=== PATIENT | female | born 1940 | race Caucasian/White ===

== ENCOUNTER 2017-03-07 00:35 | Inpatient (IN) | payer OTHER, MEDICARE ==
[~2017-03-07] VITALS: Ht 170.2 cm; Wt 74.8 kg
[2017-03-07] VITALS (20 sets, daily range): BP systolic 91–147
[2017-03-07] MEDS ORDERED: ALBUTEROL SULFATE 0.083% 2.5 MG/3 ML VIAL.NEB INH ONE (01:00)
[2017-03-07] MEDS ORDERED: methylPREDNISolone SOD SUCC/PF 62.5 MG/ML VIAL IVP ONE (01:00)
[2017-03-07] MEDS ORDERED: TERBUTALINE SULFATE 1 MG/ML VIAL SUBCUT ONE (01:00)
[2017-03-07] MEDS ORDERED: IPRATROPIUM BROM 0.5 MG/2.5 ML VIAL.NEB (ATROVENT) INH ONE (01:00)
[2017-03-07 01:21] LABS: HEMOGLOBIN 15.3 g/dL (12.0-16.0); MEAN CORPUSCULAR HGB CONC 33 % (32-36); PLATELET COUNT (AUTO) 96 K/uL (130-430)
[2017-03-07 01:26] LABS: ANION GAP 12 (5-15); CALCIUM 9.2 mg/dL (8.4-11.0); CHLORIDE 107 mmol/L (98-107); CREATININE 1.36 mg/dL (0.55-1.30); GLUCOSE 153 mg/dL (70-99); POTASSIUM 4.4 mmol/L (3.5-5.1); SODIUM SERUM 143 mmol/L (136-145); UREA NITROGEN, BLOOD 44 mg/dL (8-21)
[2017-03-07 01:28] LABS: HEMATOCRIT 46.3 % (36-48); MEAN CORPUSCULAR HEMOGLOBIN 29 pg (27-31); MEAN CORPUSCULAR VOLUME 88 fL (79.0-98.0); RED BLOOD CELL COUNT(AUTO) 5.24 MIL/uL (4.2-6.2); RED CELL DISTRIBUTION WIDTH 16.3 % (9.0-15.0); WHITE BLOOD COUNT (AUTO) 8.5 K/uL (4.8-10.8)
[2017-03-07 01:37] LABS: ALANINE AMINOTRANSFERASE 51 U/L (12-78); ALBUMIN 2.7 g/dL (3.4-4.8); ASPARTATE AMINOTRANSFERASE 32 U/L (10-37); TOTAL BILIRUBIN 0.5 mg/dL (0.0-1.0); TOTAL PROTEIN, SERUM 6.3 g/dL (6.4-8.3)
[2017-03-07 02:05] LABS: BAND % (MANUAL) 18 % (0-6); BASOPHILS % (MANUAL) 0 % (0-2); EOSINOPHILS % (MANUAL) 3 % (0-7); LYMPHOCYTES % (MANUAL) 8 % (20-46); METAMYELOCYTES % 2 % (0-0); MONOCYTES % (MANUAL) 6 % (0-11)
[2017-03-07] MEDS ORDERED: ONDANSETRON HCL 4 MG/2 ML VIAL IVP ONE (02:30)
[2017-03-07] MEDS ORDERED: NS 500 ML IV ONE ×2 (02:30→03:30)
[2017-03-07] MEDS ORDERED: ASPIRIN 81 MG TAB.CHEW PO ONE (03:00)
[2017-03-07] MEDS ORDERED: IPRA4AER INH (04:32)
[2017-03-07] MEDS ORDERED: HYDR-4100 PO (04:32)
[2017-03-07] MEDS ORDERED: LISI10TA5 PO (04:32)
[2017-03-07] MEDS ORDERED: ASPI-1063 PO (04:32)
[2017-03-07] MEDS ORDERED: CYAN1TAB47 PO (04:32)
[2017-03-07] MEDS ORDERED: LEVO50TA77 PO (04:32)
[2017-03-07] MEDS ORDERED: ASCO500T20 PO (04:32)
[2017-03-07] MEDS ORDERED: ALBMDI INH (04:32)
[2017-03-07] MEDS ORDERED: MAGN64TA11 PO (04:32)
[2017-03-07] MEDS ORDERED: POTA-118 PO (04:32)
[2017-03-07] MEDS ORDERED: BUDE6HFA INH (04:32)
[2017-03-07] MEDS ORDERED: PROC5TAB58 PO (04:32)
[2017-03-07] MEDS ORDERED: SERT50TA12 PO (04:32)
[2017-03-07] MEDS: 0.45% NACL 1,000 ML IV SCH (05:40)
[2017-03-07] MEDS ORDERED: methylPREDNISolone SOD SUCC/PF 62.5 MG/ML VIAL IVP SCH (06:00)
[2017-03-07 07:26] LABS: HEMATOCRIT 35.7 % (36-48); HEMOGLOBIN 11.7 g/dL (12.0-16.0); MEAN CORPUSCULAR HEMOGLOBIN 29 pg (27-31); MEAN CORPUSCULAR HGB CONC 33 % (32-36); MEAN CORPUSCULAR VOLUME 89 fL (79.0-98.0); PLATELET COUNT (AUTO) 74 K/uL (130-430); RED BLOOD CELL COUNT(AUTO) 3.99 MIL/uL (4.2-6.2); RED CELL DISTRIBUTION WIDTH 16.2 % (9.0-15.0); WHITE BLOOD COUNT (AUTO) 8.2 K/uL (4.8-10.8)
[2017-03-07] MEDS: LevALBUTEROL HCL 1.25 MG/0.5 ML *CONC.* VIAL.NEB (XOPENEX CONC.) INH SCH ×5 (07:42→23:00)
[2017-03-07 07:54] LABS: ANION GAP 10 (5-15); CALCIUM 8.2 mg/dL (8.4-11.0); CHLORIDE 109 mmol/L (98-107); CREATININE 1.36 mg/dL (0.55-1.30); GLUCOSE 213 mg/dL (70-99); POTASSIUM 4.9 mmol/L (3.5-5.1); SODIUM SERUM 143 mmol/L (136-145); UREA NITROGEN, BLOOD 46 mg/dL (8-21)
[2017-03-07 08:14] LABS: ALANINE AMINOTRANSFERASE 38 U/L (12-78); ASPARTATE AMINOTRANSFERASE 22 U/L (10-37); CREATINE KINASE, TOTAL 88 U/L (26-192); TOTAL BILIRUBIN 0.3 mg/dL (0.0-1.0); TOTAL PROTEIN, SERUM 4.7 g/dL (6.4-8.3)
[2017-03-07 09:25] LABS: BASOPHILS % (MANUAL) 0 % (0-2); EOSINOPHILS % (MANUAL) 0 % (0-7); LYMPHOCYTES % (MANUAL) 3 % (20-46); MONOCYTES % (MANUAL) 6 % (0-11)
[2017-03-07 09:26] LABS: BAND % (MANUAL) 30 % (0-6); METAMYELOCYTES % 2 % (0-0)
[2017-03-07] MEDS ORDERED: ENOXAPARIN SODIUM 30 MG/0.3 ML SYRINGE SUBCUT SCH (09:30)
[2017-03-07] MEDS ORDERED: PANTOPRAZOLE SODIUM 40 MG TAB PO ONE (09:45)
[2017-03-07] MEDS: AZITHROMYCIN 500 MG in NS 250 ML IV SCH (10:15)
[2017-03-07] MEDS: IPRATROPIUM BROM 0.5 MG/2.5 ML VIAL.NEB (ATROVENT) INH SCH ×4 (11:27→23:00)
[2017-03-07] MEDS ORDERED: PROCHLORPERAZINE MALEATE 5 MG TABLET PO PRN (12:30)
[2017-03-07] MEDS: HYDROcodone/ACETAMIN 10-325 MG TAB PO SCH (17:31)
[2017-03-07] MEDS: methylPREDNISolone SOD SUCC 40 MG/ML VIAL IVP SCH (20:10)
[2017-03-07] MEDS: LISINOPRIL 10 MG TABLET (PRINIVIL) PO SCH (20:10)
[2017-03-08] VITALS (15 sets, daily range): BP systolic 117–155
[2017-03-08] MEDS: 0.45% NACL 1,000 ML IV SCH (02:33)
[2017-03-08] MEDS: HYDROcodone/ACETAMIN 10-325 MG TAB PO SCH ×2 (02:34)
[2017-03-08] MEDS: LevALBUTEROL HCL 1.25 MG/0.5 ML *CONC.* VIAL.NEB (XOPENEX CONC.) INH SCH ×6 (02:45→23:00)
[2017-03-08] MEDS: IPRATROPIUM BROM 0.5 MG/2.5 ML VIAL.NEB (ATROVENT) INH SCH ×6 (02:45→23:00)
[2017-03-08] MEDS: LEVOTHYROXINE SODIUM 0.05 MG TABLET PO SCH (06:14)
[2017-03-08 06:56] LABS: BASOPHILS % (AUTO) 0.2 % (0.0-2.0); LYMPHOCYTES # (AUTO) 0.2 K/uL (1.0-5.5); NEUTROPHILS # (AUTO) 8.4 K/uL (1.8-7.7)
[2017-03-08 07:12] LABS: HEMATOCRIT 32.3 % (36-48); HEMOGLOBIN 10.7 g/dL (12.0-16.0); LYMPHOCYTES % (AUTO) 2.4 % (20.5-51.5); MEAN CORPUSCULAR HEMOGLOBIN 29 pg (27-31); MEAN CORPUSCULAR HGB CONC 33 % (32-36); MEAN CORPUSCULAR VOLUME 88 fL (79.0-98.0); MONOCYTES # (AUTO) 0.3 K/uL (0.0-1.0); MONOCYTES % (AUTO) 3.8 % (1.7-9.3); NEUTROPHILS % (AUTO) 93.6 % (40.0-70.0); RED BLOOD CELL COUNT(AUTO) 3.65 MIL/uL (4.2-6.2); RED CELL DISTRIBUTION WIDTH 15.6 % (9.0-15.0); WHITE BLOOD COUNT (AUTO) 8.9 K/uL (4.8-10.8)
[2017-03-08 07:16] LABS: ANION GAP 5 (5-15); CALCIUM 8.1 mg/dL (8.4-11.0); CHLORIDE 108 mmol/L (98-107); CREATININE 0.92 mg/dL (0.55-1.30); GLUCOSE 147 mg/dL (70-99); POTASSIUM 4.5 mmol/L (3.5-5.1); SODIUM SERUM 141 mmol/L (136-145); UREA NITROGEN, BLOOD 37 mg/dL (8-21)
[2017-03-08 07:35] LABS: ALANINE AMINOTRANSFERASE 33 U/L (12-78); ALBUMIN 1.9 g/dL (3.4-4.8); ASPARTATE AMINOTRANSFERASE 17 U/L (10-37); TOTAL BILIRUBIN 0.3 mg/dL (0.0-1.0); TOTAL PROTEIN, SERUM 4.8 g/dL (6.4-8.3)
[2017-03-08 08:29] LABS: PLATELET COUNT (AUTO) 64 K/uL (130-430)
[2017-03-08] MEDS ORDERED: FOLIC ACID PO SCH (09:00)
[2017-03-08] MEDS: SERTRALINE HCL 50 MG TABLET PO SCH (09:00)
[2017-03-08] MEDS ORDERED: CYANOCOBALAMIN PO SCH (09:00)
[2017-03-08] MEDS: FLUTICASONE/VILANTEROL 1 EACH BLST.W.DEV INH SCH (09:00)
[2017-03-08] MEDS: AZITHROMYCIN 500 MG in NS 250 ML IV SCH (09:15)
[2017-03-08] MEDS: methylPREDNISolone SOD SUCC 40 MG/ML VIAL IVP SCH ×2 (09:17→21:02)
[2017-03-08] MEDS: MAGNESIUM CHLORIDE 64 MG TABLET.DR PO SCH (09:17)
[2017-03-08] MEDS: POTASSIUM CHLORIDE 10 MEQ TAB.PRT.SR PO SCH (09:18)
[2017-03-08] MEDS: LISINOPRIL 10 MG TABLET (PRINIVIL) PO SCH ×2 (09:19→21:03)
[2017-03-08] MEDS: ASPIRIN 81 MG TABLET(ECOTRIN) PO SCH (09:19)
[2017-03-08] MEDS: PANTOPRAZOLE SODIUM 40 MG TAB PO SCH (09:19)
[2017-03-08] MEDS: ASCORBIC ACID 500 MG TABLET PO SCH (09:20)
[2017-03-08] MEDS ORDERED: HYDROcodone/ACETAMIN 10-325 MG TAB PO ONE (10:30)
[2017-03-08] MEDS: HYDROcodone/ACETAMIN 10-325 MG TAB PO PRN (16:59)
[2017-03-09] VITALS (7 sets, daily range): BP systolic 138–169
[2017-03-09] MEDS: HYDROcodone/ACETAMIN 10-325 MG TAB PO PRN ×2 (00:18→11:00)
[2017-03-09] MEDS: IPRATROPIUM BROM 0.5 MG/2.5 ML VIAL.NEB (ATROVENT) INH SCH ×7 (02:05→23:00)
[2017-03-09] MEDS: LevALBUTEROL HCL 1.25 MG/0.5 ML *CONC.* VIAL.NEB (XOPENEX CONC.) INH SCH ×7 (02:05→23:00)
[2017-03-09] MEDS: LEVOTHYROXINE SODIUM 0.05 MG TABLET PO SCH (07:48)
[2017-03-09] MEDS: MAGNESIUM CHLORIDE 64 MG TABLET.DR PO SCH (10:06)
[2017-03-09] MEDS: POTASSIUM CHLORIDE 10 MEQ TAB.PRT.SR PO SCH (10:07)
[2017-03-09] MEDS: ASCORBIC ACID 500 MG TABLET PO SCH (10:07)
[2017-03-09] MEDS: LISINOPRIL 10 MG TABLET (PRINIVIL) PO SCH ×2 (10:07→20:42)
[2017-03-09] MEDS: SERTRALINE HCL 50 MG TABLET PO SCH (10:07)
[2017-03-09] MEDS: ASPIRIN 81 MG TABLET(ECOTRIN) PO SCH (10:07)
[2017-03-09] MEDS: PANTOPRAZOLE SODIUM 40 MG TAB PO SCH (10:07)
[2017-03-09] MEDS: AZITHROMYCIN 500 MG in NS 250 ML IV SCH (10:08)
[2017-03-09] MEDS: FLUTICASONE/VILANTEROL 1 EACH BLST.W.DEV INH SCH (11:02)
[2017-03-09] MEDS: PREDNISONE 20 MG TABLET PO SCH (20:42)
[2017-03-09] MEDS ORDERED: POLYETHYLENE GLYCOL 3350, 17 GM/ POWD.PACK PO ONE (21:15)
[2017-03-10] MEDS: LevALBUTEROL HCL 1.25 MG/0.5 ML *CONC.* VIAL.NEB (XOPENEX CONC.) INH SCH ×6 (03:00→22:19)
[2017-03-10] MEDS: IPRATROPIUM BROM 0.5 MG/2.5 ML VIAL.NEB (ATROVENT) INH SCH ×6 (03:00→22:19)
[2017-03-10 04:13] VITALS: BP_SYST 140
[2017-03-10] MEDS: HYDROcodone/ACETAMIN 10-325 MG TAB PO PRN ×2 (04:38→18:18)
[2017-03-10 06:30] VITALS: BP_SYST 140
[2017-03-10] MEDS: LEVOTHYROXINE SODIUM 0.05 MG TABLET PO SCH (07:18)
[2017-03-10 07:40] VITALS: BP_SYST 149
[2017-03-10] MEDS: FLUTICASONE/VILANTEROL 1 EACH BLST.W.DEV INH SCH (09:00)
[2017-03-10] MEDS: ASPIRIN 81 MG TABLET(ECOTRIN) PO SCH ×2 (09:00→09:07)
[2017-03-10] MEDS: MAGNESIUM CHLORIDE 64 MG TABLET.DR PO SCH ×3 (09:00→20:50)
[2017-03-10] MEDS: POLYETHYLENE GLYCOL 3350, 17 GM/ POWD.PACK PO SCH ×3 (09:00→20:47)
[2017-03-10] MEDS: POTASSIUM CHLORIDE 10 MEQ TAB.PRT.SR PO SCH ×3 (09:00→20:47)
[2017-03-10] MEDS: AZITHROMYCIN 500 MG in NS 250 ML IV SCH (09:06)
[2017-03-10] MEDS: SERTRALINE HCL 50 MG TABLET PO SCH ×2 (09:07→09:11)
[2017-03-10] MEDS: ASCORBIC ACID 500 MG TABLET PO SCH (09:07)
[2017-03-10] MEDS: PREDNISONE 20 MG TABLET PO SCH ×2 (09:07→20:48)
[2017-03-10] MEDS: PANTOPRAZOLE SODIUM 40 MG TAB PO SCH (09:07)
[2017-03-10] MEDS: LISINOPRIL 10 MG TABLET (PRINIVIL) PO SCH ×2 (09:08→20:48)
[2017-03-10 13:11] VITALS: BP_SYST 126
[2017-03-10 17:13] VITALS: BP_SYST 129
[2017-03-10 19:50] VITALS: BP_SYST 119
[2017-03-11 00:29] VITALS: BP_SYST 107
[2017-03-11] MEDS: HYDROcodone/ACETAMIN 10-325 MG TAB PO PRN (01:55)
[2017-03-11] MEDS: IPRATROPIUM BROM 0.5 MG/2.5 ML VIAL.NEB (ATROVENT) INH SCH ×6 (03:00→23:50)
[2017-03-11] MEDS: LevALBUTEROL HCL 1.25 MG/0.5 ML *CONC.* VIAL.NEB (XOPENEX CONC.) INH SCH ×6 (03:00→23:50)
[2017-03-11 04:42] VITALS: BP_SYST 110
[2017-03-11] MEDS: IPRATROPIUM/ALBUTEROL SULFATE 3 ML AMPUL.NEB INH PRN (05:04)
[2017-03-11] MEDS: LEVOTHYROXINE SODIUM 0.05 MG TABLET PO SCH (06:04)
[2017-03-11 06:37] LABS: ANION GAP 2 (5-15); CALCIUM 8.5 mg/dL (8.4-11.0); CHLORIDE 113 mmol/L (98-107); CREATININE 0.99 mg/dL (0.55-1.30); GLUCOSE 129 mg/dL (70-99); POTASSIUM 4.5 mmol/L (3.5-5.1); SODIUM SERUM 144 mmol/L (136-145); UREA NITROGEN, BLOOD 37 mg/dL (8-21)
[2017-03-11 06:50] LABS: BASOPHILS % (AUTO) 0.1 % (0.0-2.0); EOSINOPHILS % (AUTO) 0.1 % (0.0-4.0); HEMATOCRIT 33.9 % (36-48); HEMOGLOBIN 11.1 g/dL (12.0-16.0); LYMPHOCYTES # (AUTO) 0.3 K/uL (1.0-5.5); LYMPHOCYTES % (AUTO) 3.5 % (20.5-51.5); MEAN CORPUSCULAR HEMOGLOBIN 29 pg (27-31); MEAN CORPUSCULAR HGB CONC 33 % (32-36); MEAN CORPUSCULAR VOLUME 88 fL (79.0-98.0); MONOCYTES # (AUTO) 0.1 K/uL (0.0-1.0); MONOCYTES % (AUTO) 0.9 % (1.7-9.3); NEUTROPHILS # (AUTO) 7.9 K/uL (1.8-7.7); NEUTROPHILS % (AUTO) 95.4 % (40.0-70.0); RED BLOOD CELL COUNT(AUTO) 3.84 MIL/uL (4.2-6.2); RED CELL DISTRIBUTION WIDTH 15.4 % (9.0-15.0); WHITE BLOOD COUNT (AUTO) 8.3 K/uL (4.8-10.8)
[2017-03-11 07:06] LABS: PLATELET COUNT (AUTO) 31 K/uL (130-430)
[2017-03-11 08:05] VITALS: BP_SYST 142
[2017-03-11] MEDS: PANTOPRAZOLE SODIUM 40 MG TAB PO SCH (08:37)
[2017-03-11] MEDS: ASCORBIC ACID 500 MG TABLET PO SCH (08:37)
[2017-03-11] MEDS: PREDNISONE 20 MG TABLET PO SCH ×2 (08:38→21:14)
[2017-03-11] MEDS: LISINOPRIL 10 MG TABLET (PRINIVIL) PO SCH ×2 (08:39→21:13)
[2017-03-11] MEDS: ASPIRIN 81 MG TABLET(ECOTRIN) PO SCH (08:40)
[2017-03-11] MEDS: AZITHROMYCIN 500 MG in NS 250 ML IV SCH (08:45)
[2017-03-11] MEDS: FLUTICASONE/VILANTEROL 1 EACH BLST.W.DEV INH SCH (08:45)
[2017-03-11] MEDS: ACETAMINOPHEN 325 MG TABLET PO PRN ×2 (10:07→21:12)
[2017-03-11 12:47] VITALS: BP_SYST 100
[2017-03-11 16:58] VITALS: BP_SYST 127
[2017-03-11] MEDS: POLYETHYLENE GLYCOL 3350, 17 GM/ POWD.PACK PO SCH (21:00)
[2017-03-11] MEDS: POTASSIUM CHLORIDE 10 MEQ TAB.PRT.SR PO SCH (21:12)
[2017-03-11] MEDS: MAGNESIUM CHLORIDE 64 MG TABLET.DR PO SCH (21:14)
[2017-03-12] VITALS (7 sets, daily range): BP systolic 122–180
[2017-03-12] MEDS: IPRATROPIUM BROM 0.5 MG/2.5 ML VIAL.NEB (ATROVENT) INH SCH ×6 (02:31→23:00)
[2017-03-12] MEDS: LevALBUTEROL HCL 1.25 MG/0.5 ML *CONC.* VIAL.NEB (XOPENEX CONC.) INH SCH ×6 (02:31→23:00)
[2017-03-12] MEDS: HYDROcodone/ACETAMIN 10-325 MG TAB PO PRN ×3 (02:47→19:35)
[2017-03-12] MEDS: LEVOTHYROXINE SODIUM 0.05 MG TABLET PO SCH (06:12)
[2017-03-12 06:43] LABS: EOSINOPHILS % (AUTO) 0.1 % (0.0-4.0); HEMATOCRIT 32.5 % (36-48); HEMOGLOBIN 10.8 g/dL (12.0-16.0); LYMPHOCYTES # (AUTO) 0.3 K/uL (1.0-5.5); LYMPHOCYTES % (AUTO) 3.1 % (20.5-51.5); MEAN CORPUSCULAR HEMOGLOBIN 29 pg (27-31); MEAN CORPUSCULAR HGB CONC 33 % (32-36); MEAN CORPUSCULAR VOLUME 88 fL (79.0-98.0); MONOCYTES # (AUTO) 0.2 K/uL (0.0-1.0); MONOCYTES % (AUTO) 2.2 % (1.7-9.3); NEUTROPHILS % (AUTO) 94.6 % (40.0-70.0); RED BLOOD CELL COUNT(AUTO) 3.69 MIL/uL (4.2-6.2); WHITE BLOOD COUNT (AUTO) 8.5 K/uL (4.8-10.8)
[2017-03-12 06:46] LABS: ANION GAP 3 (5-15); CALCIUM 8.7 mg/dL (8.4-11.0); CHLORIDE 109 mmol/L (98-107); CREATININE 1.03 mg/dL (0.55-1.30); GLUCOSE 198 mg/dL (70-99); POTASSIUM 4.4 mmol/L (3.5-5.1); SODIUM SERUM 141 mmol/L (136-145); UREA NITROGEN, BLOOD 35 mg/dL (8-21)
[2017-03-12 06:56] LABS: INR 0.9 (0.8-1.2); PROTHROMBIN TIME 10.2 SECS (9.5-12.5)
[2017-03-12 07:43] LABS: PLATELET COUNT (AUTO) 33 K/uL (130-430)
[2017-03-12 08:06] LABS: IMMUNOGLOBULIN G, SERUM 305 mg/dL (700-1600); IMMUNOGLOBULIN M, SERUM 51 mg/dL (26-217)
[2017-03-12] MEDS: PANTOPRAZOLE SODIUM 40 MG TAB PO SCH (08:54)
[2017-03-12] MEDS: ASCORBIC ACID 500 MG TABLET PO SCH (08:55)
[2017-03-12] MEDS: LISINOPRIL 10 MG TABLET (PRINIVIL) PO SCH ×2 (08:55→20:25)
[2017-03-12] MEDS: PREDNISONE 20 MG TABLET PO SCH ×2 (08:56→20:24)
[2017-03-12] MEDS: FLUTICASONE/VILANTEROL 1 EACH BLST.W.DEV INH SCH (08:57)
[2017-03-12] MEDS: SERTRALINE HCL 50 MG TABLET PO SCH ×2 (08:57→09:00)
[2017-03-12] MEDS ORDERED: LIDOCAINE VISCOUS 2%, 15 ML UDC MM PRN (11:00)
[2017-03-12] MEDS: IPRATROPIUM/ALBUTEROL SULFATE 3 ML AMPUL.NEB INH PRN (19:56)
[2017-03-12] MEDS: MAGNESIUM CHLORIDE 64 MG TABLET.DR PO SCH (20:24)
[2017-03-12] MEDS: POTASSIUM CHLORIDE 10 MEQ TAB.PRT.SR PO SCH (20:24)
[2017-03-12] MEDS: POLYETHYLENE GLYCOL 3350, 17 GM/ POWD.PACK PO SCH (20:26)
[2017-03-13] VITALS (7 sets, daily range): BP systolic 108–159
[2017-03-13] MEDS: LevALBUTEROL HCL 1.25 MG/0.5 ML *CONC.* VIAL.NEB (XOPENEX CONC.) INH SCH ×6 (00:47→23:37)
[2017-03-13] MEDS: HYDROcodone/ACETAMIN 10-325 MG TAB PO PRN ×4 (00:48→20:16)
[2017-03-13] MEDS: IPRATROPIUM BROM 0.5 MG/2.5 ML VIAL.NEB (ATROVENT) INH SCH ×6 (01:04→23:37)
[2017-03-13] MEDS: LEVOTHYROXINE SODIUM 0.05 MG TABLET PO SCH (06:12)
[2017-03-13 06:35] LABS: ANION GAP 3 (5-15); CALCIUM 8.6 mg/dL (8.4-11.0); CHLORIDE 110 mmol/L (98-107); CREATININE 1.04 mg/dL (0.55-1.30); GLUCOSE 182 mg/dL (70-99); POTASSIUM 4.5 mmol/L (3.5-5.1); SODIUM SERUM 143 mmol/L (136-145); UREA NITROGEN, BLOOD 33 mg/dL (8-21)
[2017-03-13 07:36] LABS: BASOPHILS % (AUTO) 0.2 % (0.0-2.0); EOSINOPHILS % (AUTO) 0.1 % (0.0-4.0); HEMATOCRIT 31.6 % (36-48); HEMOGLOBIN 10.4 g/dL (12.0-16.0); LYMPHOCYTES # (AUTO) 0.3 K/uL (1.0-5.5); LYMPHOCYTES % (AUTO) 3.6 % (20.5-51.5); MEAN CORPUSCULAR HEMOGLOBIN 29 pg (27-31); MEAN CORPUSCULAR HGB CONC 33 % (32-36); MEAN CORPUSCULAR VOLUME 88 fL (79.0-98.0); MONOCYTES # (AUTO) 0.2 K/uL (0.0-1.0); MONOCYTES % (AUTO) 2.9 % (1.7-9.3); NEUTROPHILS # (AUTO) 6.9 K/uL (1.8-7.7); NEUTROPHILS % (AUTO) 93.2 % (40.0-70.0); RED CELL DISTRIBUTION WIDTH 15.2 % (9.0-15.0); WHITE BLOOD COUNT (AUTO) 7.4 K/uL (4.8-10.8)
[2017-03-13 08:52] LABS: PLATELET COUNT (AUTO) 40 K/uL (130-430)
[2017-03-13] MEDS: PREDNISONE 20 MG TABLET PO SCH ×2 (08:52→20:16)
[2017-03-13] MEDS: LISINOPRIL 10 MG TABLET (PRINIVIL) PO SCH ×2 (08:53→20:17)
[2017-03-13] MEDS: PANTOPRAZOLE SODIUM 40 MG TAB PO SCH (08:53)
[2017-03-13] MEDS: ASCORBIC ACID 500 MG TABLET PO SCH (08:53)
[2017-03-13] MEDS: SERTRALINE HCL 50 MG TABLET PO SCH (08:54)
[2017-03-13] MEDS: FLUTICASONE/VILANTEROL 1 EACH BLST.W.DEV INH SCH (09:00)
[2017-03-13] MEDS ORDERED: IMMUNE GLOBULIN,GAMMA(IGG) 0.5 GM ML IV ONE (10:15)
[2017-03-13] MEDS ORDERED: COMMUNICATION ORDER XX ONE (18:30)
[2017-03-13] MEDS ORDERED: FLUCONAZOLE 200 mg/ NS 100 ML IV ONE (19:30)
[2017-03-13] MEDS: IPRATROPIUM/ALBUTEROL SULFATE 3 ML AMPUL.NEB INH PRN (19:36)
[2017-03-13] MEDS: POTASSIUM CHLORIDE 10 MEQ TAB.PRT.SR PO SCH (20:16)
[2017-03-13] MEDS: MAGNESIUM CHLORIDE 64 MG TABLET.DR PO SCH (20:17)
[2017-03-13] MEDS: POLYETHYLENE GLYCOL 3350, 17 GM/ POWD.PACK PO SCH (20:18)
[2017-03-14 01:30] VITALS: BP_SYST 151
[2017-03-14] MEDS: IPRATROPIUM BROM 0.5 MG/2.5 ML VIAL.NEB (ATROVENT) INH SCH ×5 (03:00→19:38)
[2017-03-14] MEDS: LevALBUTEROL HCL 1.25 MG/0.5 ML *CONC.* VIAL.NEB (XOPENEX CONC.) INH SCH ×5 (03:00→19:38)
[2017-03-14] MEDS: HYDROcodone/ACETAMIN 10-325 MG TAB PO PRN ×3 (05:26→18:11)
[2017-03-14] MEDS: IPRATROPIUM/ALBUTEROL SULFATE 3 ML AMPUL.NEB INH PRN ×2 (05:29→21:25)
[2017-03-14 05:44] VITALS: BP_SYST 129
[2017-03-14] MEDS: LEVOTHYROXINE SODIUM 0.05 MG TABLET PO SCH (06:31)
[2017-03-14 06:34] LABS: EOSINOPHILS % (AUTO) 0.1 % (0.0-4.0); HEMOGLOBIN 11.5 g/dL (12.0-16.0); LYMPHOCYTES # (AUTO) 0.4 K/uL (1.0-5.5); LYMPHOCYTES % (AUTO) 5.2 % (20.5-51.5); MEAN CORPUSCULAR HEMOGLOBIN 30 pg (27-31); MEAN CORPUSCULAR HGB CONC 34 % (32-36); MEAN CORPUSCULAR VOLUME 88 fL (79.0-98.0); MONOCYTES # (AUTO) 0.3 K/uL (0.0-1.0); MONOCYTES % (AUTO) 4.1 % (1.7-9.3); NEUTROPHILS # (AUTO) 6.1 K/uL (1.8-7.7); NEUTROPHILS % (AUTO) 90.6 % (40.0-70.0); RED BLOOD CELL COUNT(AUTO) 3.86 MIL/uL (4.2-6.2); RED CELL DISTRIBUTION WIDTH 15.2 % (9.0-15.0); WHITE BLOOD COUNT (AUTO) 6.8 K/uL (4.8-10.8)
[2017-03-14 06:57] LABS: PLATELET COUNT (AUTO) 42 K/uL (130-430)
[2017-03-14] MEDS: LISINOPRIL 10 MG TABLET (PRINIVIL) PO SCH ×2 (08:29→21:31)
[2017-03-14] MEDS: PREDNISONE 20 MG TABLET PO SCH ×2 (08:29→21:30)
[2017-03-14] MEDS: ASCORBIC ACID 500 MG TABLET PO SCH (08:29)
[2017-03-14] MEDS: PANTOPRAZOLE SODIUM 40 MG TAB PO SCH (08:29)
[2017-03-14] MEDS: SERTRALINE HCL 50 MG TABLET PO SCH ×3 (08:29→08:40)
[2017-03-14] MEDS: FLUTICASONE/VILANTEROL 1 EACH BLST.W.DEV INH SCH (09:00)
[2017-03-14 12:22] VITALS: BP_SYST 158
[2017-03-14 16:18] VITALS: BP_SYST 156
[2017-03-14 19:50] VITALS: BP_SYST 159
[2017-03-14] MEDS: POLYETHYLENE GLYCOL 3350, 17 GM/ POWD.PACK PO SCH ×2 (21:00→21:30)
[2017-03-14] MEDS ORDERED: FLUCONAZOLE 200 mg/ NS 100 ML IV SCH (21:00)
[2017-03-14] MEDS ORDERED: SYMBICORT 160-4.5 INH SCH (21:00)
[2017-03-14] MEDS: POTASSIUM CHLORIDE 10 MEQ TAB.PRT.SR PO SCH (21:30)
[2017-03-14] MEDS: MAGNESIUM CHLORIDE 64 MG TABLET.DR PO SCH (21:30)
== END 2017-03-14 22:46 | disposition home health service (06) | DRG 208 ==
LOC: SED 00:35 → SIC 04:33 → STU 03-08 12:15
PROVIDERS: ADMIT Family Medicine; ATTEND Family Medicine
PROC: 5A1935Z Respiratory Ventilation, Less than 24 Consecutive Hours (ICD-10-PCS; principal; 2017-03-07)
DX: J96.00 Acute respiratory failure, unspecified whether with hypoxia or hypercapnia (principal); J44.1 Chronic obstructive pulmonary disease with (acute) exacerbation; C85.90 Non-Hodgkin lymphoma, unspecified, unspecified site; C91.10 Chronic lymphocytic leukemia of B-cell type not having achieved remission; D80.1 Nonfamilial hypogammaglobulinemia; N17.9 Acute kidney failure, unspecified; I10 Essential (primary) hypertension; E03.9 Hypothyroidism, unspecified; G56.00 Carpal tunnel syndrome, unspecified upper limb; T45.1X5A Adverse effect of antineoplastic and immunosuppressive drugs, initial encounter; D69.59 Other secondary thrombocytopenia; Z79.82 Long term (current) use of aspirin; Z79.899 Other long term (current) drug therapy; Z88.2 Allergy status to sulfonamides; Z87.891 Personal history of nicotine dependence; Z90.710 Acquired absence of both cervix and uterus; Y92.89 Other specified places as the place of occurrence of the external cause; Z88.8 Allergy status to other drugs, medicaments and biological substances
CPT/HCPCS: 36415; 71010; 80048; 80053; 82550-TC; 82784; 83880; 84484; 85007; 85025; 85027; 85610-TC; 85730-TC; 87081; 93005; 94640; 94660; 94760; 96361; 96374; 96375; 97110-GP; 97116-GP; 97530-GP; 99285; J0456; J1030; J1450; J2001; J2405; J2930; J3105; J7030; J7040; J7050; J7512; Q0164